=== PATIENT | female | born 1990 | race African-American/Black ===

== ENCOUNTER 2023-07-05 15:37 | Emergency (ER) | payer MEDICAID ==
[~2023-07-05] VITALS: Ht 157.5 cm; Wt 65.9 kg
[2023-07-05 15:41] VITALS: TEMP 98
[2023-07-05] MEDS ORDERED: PRED-549 PO (15:41)
[2023-07-05] MEDS ORDERED: ADAL40PE5 SQ (15:41)
[2023-07-05] MEDS ORDERED: SULF500T60 PO (15:41)
[2023-07-05] MEDS ORDERED: PRED-554 PO (16:21)
[2023-07-05] MEDS: DEXAMETHASONE SOD PHOS 4 MG/ML 5 ML VIAL IVP ONE (16:48)
[2023-07-05] MEDS: KETOROLAC TROMETHAMINE 30 MG/ML VIAL IVP ONE (16:48)
[2023-07-05] MEDS: ONDANSETRON HCL 4 MG/2 ML VIAL IVP ONE (16:48)
[2023-07-05] MEDS: FentaNYL CITRATE PF 100 MCG/2 ML VIAL IVP ONE (18:11)
[2023-07-05 19:00] VITALS: BP 111/69; PULSE 81; RESP 18
== END 2023-07-05 19:01 | disposition home or self-care (01) ==
LOC: EMS 15:39
DX: G89.29 Other chronic pain (principal); M19.90 Unspecified osteoarthritis, unspecified site
CPT/HCPCS: 99284; 96374; 96375; J1100; J3010; J1885; J2405